=== PATIENT | male | born 1990 | race Caucasian/White ===

== ENCOUNTER 2021-11-29 13:42 | Emergency (ER) | payer BC, SELFPAY ==
[2021-11-29 13:43] VITALS: BP 163/80; PULSE 86; RESP 18; TEMP 36.9; O2SAT 96; BMI 21.4
--- NOTE | 2021-11-29 14:10 | PC.NURSE ---
LOREE BRAN at
--- NOTE | 2021-11-29 14:34 | HMH.EDGENADL ---
Discharge Plan Disposition Patient Disposition: Home, Self-Care Condition: Good Prescriptions Prescriptions: New hydroxyzine HCl 25 mg tablet 25 mg PO Q6H PRN (Reason: nausea) Qty: 20 0RF pantoprazole [Protonix] 40 mg tablet,delayed release (DR/EC) 40 mg PO DAILY Qty: 20 0RF No Action buprenorphine-naloxone [Suboxone] 8-2 mg Tablet, Sublingual 1 tab SUBLINGUAL DAILY Referrals Follow up/Referrals: Provider,Referral, MD [Primary Care Provider] - See instructions Activity Restrictions/Add. Instructions Additional Instructions/Restrictions: Protonix and hydroxyzine as prescribed. You are being provided with a list of physicians available for follow-up of your condition. Please call a physician on this list to arrange a follow-up appointment as soon as possible. Follow-up with Blanche Tran, behavioral medicine, for anxiety, call for appointment. Clinical Impressions Clinical Impression: Nausea, Abnormal food appetite, Anxiety Instructions Patient Instructions: DI for Diarrhea and Traveler's Diarrhea -- Adult, DI for Diarrhea and Traveler's Diarrhea -- Child, DI for Nausea -- Adult, DI for Nausea -- Child Discharge ED Provider: Jose Alfredo Navas General Adult HPI General Chief complaint: Nausea/Vomiting/Diarrhea Stated complaint: RT abdominal pain, nausea, no appetite Time Seen by Provider: 11/29/21 14:05 History of Present Illness HPI narrative: Patient states for the past 4 to 5 days he has been waking up with nausea, shakiness, and sweatiness. He has poor appetite. He seems concerned that recent drug use may be contributing to his symptoms. States that he has trouble keeping weight on and therefore began smoking THC. He says he did put on 10 to 15 pounds but he is concerned because of the residue left by the THC device, he is concerned the residue may be collecting in his system. He also says that he has been taking some gabapentin, off the street, for his symptoms, which seems to help. Last used these drugs within the past couple of days. He has also been taking leftover Zofran for his nausea. Also states that he has a soft tissue mass the size of a BB in his right lower quadrant that has been present since he was 15 years old. Last oral intake - hash brown this morning, water since. States that he suffers from severe anxiety. States that he was seen at [place] emergency department a couple of years ago and was told that I have the worst case of anxiety they have ever seen . He has not ever seen psychiatry or behavioral medicine for evaluation or treatment. 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 11/29/21 11/29/21 sublingual tablet Previous Rx's Medication Instructions Recorded hydroxyzine HCl 25 mg tablet 25 mg PO Q6H PRN nausea #20 tabs 11/29/21 pantoprazole 40 mg tablet,delayed 40 mg PO DAILY #20 tabs 11/29/21 release (Protonix) Allergies Allergy/AdvReac Type Severity Reaction Status Date / Time No Known Allergies Allergy Verified 11/29/21 14:41 [facility] Medical History (Updated 11/29/21 @ 15:49 by Jose Alfredo Navas MD) Mitral valve prolapse Social History Smoking Status: Current some day smoker ROS Obtained: Yes All systems reviewed & no additional complaints except as documented Constitutional Constitutional: Reports system reviewed and no additional complaints, except as documented, Reports excessive sweating, Denies headache(s) and Denies weakness ENT Ears, Nose, Mouth, and Throat: Denies headache(s), Denies nasal discharge and Denies sore throat Cardiovascular Cardiovascular: Denies chest pain Respiratory Respiratory: Denies shortness of breath and Denies cough Gastrointestinal Gastrointestingal: Reports abdominal pain and nausea; Denies constipation or diarrhea Genitourinary Male Genitourinary: Denies difficulty urinating and Denie
[2021-11-29 14:40] VITALS: BMI 21.4
[2021-11-29 14:55] LABS: Microscopic, Urine URINE MICROSCOPIC (MICROSCOPIC)
[2021-11-29 14:59] LABS: Appearance,Urine CLEAR (Clear); Blood, Urine Negative (Negative); Color,Urine DK YELLOW (Yellow); Glucose,Urine (UA) Negative (Negative); Ketones,Urine Negative (Negative); Leukocyte Esterase,Urine Negative (Negative); Nitrate,Urine Negative (Negative); Protein,Urine Negative (Negative); Specific Gravity, Urine >= 1.030 (1.005-1.030)
[2021-11-29 15:02] LABS: Bilirubin,Urine 1+ (Negative)
[2021-11-29 15:08] LABS: Basophils # 0.1 K/mm3 (0-0.2); Basophils % 1.2 % (0.1-2.0); Eosinophils # 0.1 K/mm3 (0.0-0.4); Eosinophils % 0.7 % (0.1-12.0); Hematocrit 44.8 % (42.0-52.0); Hemoglobin 15.2 g/dL (14.1-18.0); Lymphocytes # 1.2 K/mm3 (0.7-4.5); Lymphocytes % 19.7 % (10-50); Mean Corpuscular HGB Conc 33.9 g/dL (31.8-35.4); Mean Corpuscular Hemoglobin 32.1 pg (27.0-31.2); Mean Corpuscular Volume 94.8 fl (80-94); Mean Platelet Volume 8.8 fl (7.4-10.4); Monocytes # 0.4 K/mm3 (0.1-1.0); Monocytes % 6.4 % (1.7-9.3); Neutrophils # 4.5 K/mm3 (1.8-7.8); Neutrophils % 71.9 % (37.0-80.0); Platelet Count 204 K/mm3 (142-424); Red Blood Count 4.72 M/mm3 (4.60-6.20); Red Cell Distribution Width 13.3 % (11.5-17.5); White Blood Count 6.3 K/mm3 (4.8-10.8)
[2021-11-29 15:10] LABS: Amphetamine/Metha Screen,Urine Negative ng/ml (<1000)
[2021-11-29 15:11] LABS: Barbiturates Screen,Urine Negative ng/ml (<200)
[2021-11-29 15:12] LABS: Benzodiazepines Screen,Urine Negative ng/ml (<200); Cannabinoid Screen,Urine Positive ng/ml (<50)
[2021-11-29 15:13] LABS: Cocaine Screen,Urine Negative ng/ml (<300)
[2021-11-29 15:14] VITALS: BP 130/68; PULSE 78; RESP 16; O2SAT 97
[2021-11-29 15:14] LABS: Methadone Screen,Urine Negative ng/ml (<300); Opiate Screen,Urine Negative ng/ml (<300)
--- NOTE | 2021-11-29 15:14 | PC.NURSE ---
pt in room re cycle vitals pt ambulating to restroom
[2021-11-29 15:15] LABS: Phencyclidine Screen,Urine Negative ng/ml (<25)
[2021-11-29 15:19] LABS: Chloride 101 mmol/L (98-107); Potassium 3.3 mmoL/L (3.5-5.1); Sodium 141 mmol/L (136-145)
[2021-11-29 15:21] LABS: Amorphous Sediment,Urine Trace /lpf; Bacteria,Urine Trace /lpf; Mucus,Urine 2+ /lpf; RBC,Urine Occasional #/hpf (0-3); Squamous Epithelial Cell,Urine Occasional #/hpf (0-5)
[2021-11-29 15:21] LABS: Blood Urea Nitrogen 8 mg/dl (9-20); Creatinine Clearance Estimated 122 mL/min (50-200); Estimated Glomerular Filt Rate 111 ml/min (>60); GFR (African American) 135 ML/MIN (>60)
[2021-11-29 15:22] LABS: Alanine Aminotransferase 19 U/L (12-78); Albumin Level 4.9 g/dl (3.5-5.0); Albumin/Globulin Ratio 1.6 (1.1-1.8); Alkaline Phosphatase 87 U/L (38-126); Anion Gap 13.3 mEq/L (5-15); Aspartate Amino Transferase 34 U/L (17-59); Bilirubin,Total 1.3 mg/dl (0.2-1.3); Calcium 8.9 mg/dl (8.4-10.2); Carbon Dioxide 30 mmol/L (22.0-30.0); Glucose 96 mg/dl (74-100); Lipase 36 U/L (23-300); Total Protein,Serum 7.9 g/dl (6.3-8.2)
--- NOTE | 2021-11-29 15:23 | PC.NURSE ---
pt medicated per MAR, given warm blanket, call light within reach, lights turned down in room so pt could rest. will continue to monitor
[2021-11-29 15:31] VITALS: BP 125/73; PULSE 61; RESP 18; O2SAT 100
--- NOTE | 2021-11-29 15:35 | PC.NURSE ---
pt resting in room
[2021-11-29 16:16] VITALS: BP 128/75; PULSE 57; RESP 18; TEMP 36.9; O2SAT 96
== END 2021-11-29 16:16 | disposition home or self-care (01) ==
PROVIDERS: Emergency Provider Emergency Medicine
DX: R11.2 Nausea with vomiting, unspecified (principal); R10.9 Unspecified abdominal pain; R19.7 Diarrhea, unspecified; F41.9 Anxiety disorder, unspecified; F12.90 Cannabis use, unspecified, uncomplicated
CPT/HCPCS: 80053; 80305; 81001; 83690; 85025; 96361; 96374; 96375; 99284; J2405

== ENCOUNTER 2023-12-04 15:35 | Emergency (ER) | payer SELFPAY ==
[2023-12-04 15:59] VITALS: BP 140/73; PULSE 72; RESP 20; TEMP 36.6; O2SAT 100; BMI 19.9
--- NOTE | 2023-12-04 16:04 | EXP.UTC ---
Discharge Plan Disposition Patient Disposition: Home, Self-Care Condition: Good Prescriptions Prescriptions: New methylprednisolone [Medrol (Dre)] 4 mg tablets,dose pack See Rx Instructions .Route .COMPLEX 6 Days Qty: 21 0RF Rx Instructions: taper pack; Referrals Follow up/Referrals: Provider,Referral, MD [Primary Care Provider] - See instructions Activity Restrictions/Add. Instructions Additional Instructions/Restrictions: Over the counter Benadryl may help Oatmeal bathes may help to soothe the skin Start oral steriods tomorrow Follow up with Family Doctor if no improvement or any worsening of symptoms Clinical Impressions Clinical Impression: Rash and nonspecific skin eruption Instructions Patient Instructions: DI for Rash, Methylprednisolone Print Language Print Language: Lithuanian Discharge ED Provider: Yenny Dela Cruz [facility] General Stated complaint: Rash on body,does not itch Mode of Arrival: Ambulatory Source of Information: Patient Time Seen by Provider: 12/04/23 16:04 Description of Symptoms (Recalled from Triage Doc. by RN): GEN. 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 States that he started breaking out in rash last night on his chest and back States he has been taking Benadryl so it hasnt been itching that much but today the rash seemed to be spreading so he came in Related Data Previous Rx's ?Medication ?Instructions ?Recorded methylprednisolone 4 mg tablets in See Rx Instructions .Route 12/04/23 a dose pack (Medrol (Dre)) .COMPLEX 6 days #21 tabs Allergies Allergy/AdvReac Type Severity Reaction Status Date / Time No Known Allergies Allergy Verified 11/29/21 14:41 Worker's Comp Is this a Worker's Comp case?: No [facility] Disclaimer: The information contained in this section may have been updated after the patient was seen, as this information can be updated by other users. Medical History (Updated 12/04/23 @ 16:17 by Yenny Dela Cruz APRN) Mitral valve prolapse Social History Smoking Status: Current some day smoker alcohol intake: never current occupational status: employed Travel in the last 8 weeks: None ROS Obtained: Yes All systems reviewed & no additional complaints except as documented and Yes Systems reviewed as appropriate & no additional complaints except as documented Constitutional Constitutional: Reports system reviewed and no additional complaints, except as documented and Reports as per HPI Cardiovascular Cardiovascular: Reports system reviewed and no additional complaints, except as documented and Reports as per HPI Respiratory Respiratory: Reports system reviewed and no additional complaints, except as documented and Reports as per HPI Gastrointestinal Gastrointestingal: Reports system reviewed and no additional complaints, except as documented and as per HPI Integumentary/Breasts Skin/Breast: Reports system reviewed and no additional complaints, except as documented, Reports as per HPI, Reports pruritus and Reports rash Physical Exam General General appearance: alert and in no apparent distress Respiratory Respiratory exam: Present normal lung sounds bilaterally; Absent respiratory distress or wheezes Cardiovascular Cardiovascular exam: Present regular rate, normal rhythm and normal heart sounds Neurological Exam Neurological exam: Present alert, oriented X3 and normal gait Skin Skin exam: Present rash (rash on chest and back different sizes and shapes, appears urticaria in spots) Medical Decision Making Medical Records Screening: Per USPSTF and CDC recommendations, given the prevalence of disease in our region, it is our hospital?s policy to screen for HIV and viral Hepatitis for all patients aged 18 and over and those with ongoing risk factors. Jean Carlos Inquiry Pt receiving controlled substance: No Jean Carlos was queried for this patient: No Vital Signs: 12/04/23 15:59 Temperature 97.9 F Temperature Source Oral Pulse Rate [Left Brachial] 72 Respiratory Rate 20 Blood Pressure [Left Arm] 140/73 Blood Pressure Mean [Left Arm] 95 02 Sat by Pulse Oximetry 100
[2023-12-04] MEDS: METHYLPREDNISOLONE SOD SUCC 125MG VIAL 125 MG IM (16:19)
[2023-12-04 16:43] VITALS: BP 140/73; PULSE 72; RESP 20; TEMP 36.6
== END 2023-12-04 16:44 | disposition home or self-care (01) ==
PROVIDERS: Emergency Provider Nurse Practitioner
DX: R21 Rash and other nonspecific skin eruption (principal)
CPT/HCPCS: 96372; 99204; 99212; G0463; J2919